=== PATIENT | male | born 1930 | race Caucasian/White ===

== ENCOUNTER 2016-09-03 15:28 | Inpatient (IN) | payer MEDICARE ==
[~2016-09-03] VITALS: Ht 180.3 cm; Wt 76.0 kg
--- NOTE | ~2016-09-03 | ECH ---
Transthoracic Echocardiography Report (TTE) Demographics Patient Name MARÍA ASCENCIO JR Date of Study 09/04/2016 Patient Number [id number] Visit Number [id number] Date of 1930 Room Number 532 Accession Number [id number] Gender Male Age 86 year(s) Referring Yessica Dominguez Tank Bottom Assembler Akua Clark [facility] Physician Physician Interpreting Ryan Zaragoza Bar Machine Operator Production Physician Supervising Ordering Physician Yessica Dominguez MD, MD/MLP Nurse Stress Pumper Gager Conclusions Contractility Score Summary Normal Left Ventricular contractility was noted. Summary Technically adequate exam. The estimated left ventricular ejection fraction is 60-65%. Mild biatrial enlargement. Mild tricuspid regurgitation by color Doppler. There is mild pulmonary hypertension. The pulmonary pressure (RVSP) is 42 mmHg. The ascending aorta appears mildly dilated. The maximum diameter measures 3.6 cm. Recommendation The patient will be given the results of this study by the physician who ordered the exam. Procedure Type of Study TTE procedure:Echo Complete SF. Procedure Date Date: 09/04/2016 Start: 02:31 PM Technical Quality: Adequate visualization Indications:Atrial fibrillation, Shortness of breath and Hypertension. Appropriate Use Criteria: 9 Height: 71 inches Weight: 166 pounds BSA: 1.95 m Rhythm: Atrial fibrillation HR: 103 bpm BP: 119/78 mmHg M-Mode/2D Measurements LV Diastolic Dimension: 5.22 cm LV Systolic Dimension: 3.35 cm LV Septum Diastolic: 0.83 cm LV PW Diastolic: 0.85 cm AO Root Dimension: 3.58 cm Cardiac Output: 5.64 l/min LA Dimension: 3.61 cm Cardiac Index: 2.89 l/min*m RV Diastolic Dimension: 3.96 cm LA volume index: 37 ml/m LVOT: 2.18 cm LVOT VTI: 14.68 cm RV Base: 3.6 cm LV Stroke volume: 54.77 ml RV Mid: 3 cm LV Stroke volume index: 28.09 ml/m TAPSE: 2.4 cm TDI-S': 14 cm/s Doppler Measurements AV Peak Velocity: 1 m/s MV Peak E-Wave: 0.94 m/s AV Peak Gradient: 4 mmHg AV Mean Gradient: 2.67 mmHg LVOT Peak Velocity: 0.8 m/s AV Area (Continuity):2.69 cm PV Peak Velocity: 0.81 m/s TR Velocity:3.05 m/s PV Peak Gradient: 2.63 mmHg TR Gradient:37.21 mmHg Estimated PASP: 42.21 mmHg Estimated RAP:5 mmHg Estimated RVSP: 42 mmHg E' Septal Velocity: 0.11 m/s E' Lateral Velocity: 0.15 m/s RA Area: 21.4 cm Findings Left Ventricle Normal left ventricle size and function. Diastolic function indeterminate due to patient's arrhythmia. Right Ventricle Normal right ventricle structure and function. Left Atrium The left atrium is mildly dilated by LA volume index measurement. Right Atrium The right atrium is mildly dilated. Mitral Valve Normal mitral valve structure and function. Mild mitral regurgitation by color Doppler. Aortic Valve The aortic valve is mildly sclerotic. Tricuspid Valve Normal tricuspid valve structure and function. Mild tricuspid regurgitation by color Doppler. There is mild pulmonary hypertension. The pulmonary pressure (RVSP) is 42 mmHg. Pulmonic Valve The pulmonic valve is not well visualized. Trivial pulmonic valve regurgitation by color Doppler. Pericardial Effusion No evidence of pericardial effusion. Miscellaneous The ascending aorta appears mildly dilated. The maximum diameter measures 3.6 cm. Pleural Effusion No evidence of pleural effusion. Contractility Score LV regional wall motion:(0-Non visualized 1-Normal 2-Hypokinesis 3-Akinesis 4-Dyskinesis 5-Aneurysm) Signature
[~2016-09-03 15:28] MED LIST: CELEXA DPS20 MG PO; COLACE-DPS100 MG PO; DUONEB DPS3 ML IH; HYDROCODONE 7.7.5 MG PO; KLOR-CON M2020 MEQ PO; LIPITOR DPS10 MG PO; MAALOX DPS30 ML PO; OMEPRAZOLE20 M1 PO; PROSCAR DPS5 MG PO; SOLU-MEDROL125 MG IV; SURFAK DPS240 MG PO; TYLENOL DPS325 MG PO; VANCOCIN-DPS1 GM IV; XARELTO15 MG PO
[2016-09-06] MEDS ORDERED: PROVENTIL HFA6.7 GM IH (16:03)
[2016-09-06] MEDS ORDERED: ELIQUIS2.5 MG PO (16:04)
[2016-09-06] MEDS ORDERED: VITAMIN D3400 UNIT PO (16:04)
[2016-09-06] MEDS ORDERED: LIPITOR DPS10 MG PO (16:04)
[2016-09-06] MEDS ORDERED: ADULT LOW DOSE81 MG PO (16:04)
[2016-09-06] MEDS ORDERED: DUONEB DPS3 ML IH (16:04)
[2016-09-06] MEDS ORDERED: COLACE-DPS100 MG PO (16:05)
[2016-09-06] MEDS ORDERED: EFUDEX40 GM TP (16:07)
[2016-09-06] MEDS ORDERED: ENULOSE10 GM/15 M PO (16:08)
[2016-09-06] MEDS ORDERED: NITROSTAT0.4 MG SL (16:08)
[2016-09-06] MEDS ORDERED: ASMANEX1 INH IH (16:08)
[2016-09-06] MEDS ORDERED: PRILOSEC DPS20 MG PO (16:08)
[2016-09-06] MEDS ORDERED: SPIRIVA18 MCG IH (16:09)
[2016-09-06] MEDS ORDERED: TERA PO (16:09)
[2016-09-06] MEDS ORDERED: MIRALAX DPS17 GM PO (16:09)
[2016-09-06] MEDS ORDERED: LASIX DPS40 MG PO (16:10)
[2016-09-06] MEDS ORDERED: DELTASONE DPS10 MG PO (16:10)
[2016-09-06] MEDS ORDERED: MICRO-K DPS10 MEQ PO (16:10)
[2016-09-06] MEDS ORDERED: LEVAQUIN DPS500 MG PO (16:11)
--- NOTE | 2016-09-15 12:04 | HP ---
ADMIT: 09/03/2016 RM/LOC: 532 [facility] MR#: [id number] [address] [address] [place] [address] History and Physical SEX: M AGE: 86 : 1930 CHIEF COMPLAINT: Increased shortness of breath and sputum production. 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 The patient was recently admitted to the hospital at [place] for pneumonia and COPD exacerbation. He was doing well and so he was discharged on 08/27/2016. The patient states he initially felt better, but then over the next couple of days, he became more short of breath and had increased sputum production with sometimes occasional pink-tinged sputum. The patient is currently on a prednisone taper and just recently stopped the antibiotics. When the patient continued to get short of breath, the patient brought himself to the [facility], who then decided to ship him back to [place]. Of note, patient does wear oxygen at night, anywhere between 2 to 4 L at a time. He also wears oxygen during the day quite frequently, but not consistently. The patient denies any chest pain, palpitations. Denies nausea, vomiting, abdominal pain. He does have some constipation. No weakness. He does have some edema bilaterally. REVIEW OF SYSTEMS: As noted in the HPI noted above. PAST MEDICAL HISTORY: Atrial fibrillation, hypertension, lymphocytic leukemia, COPD, benign prostatic hypertrophy. ALLERGIES: SULFA. MEDICATIONS: See list. PAST SURGICAL HISTORY: He had back surgery after returning from the war. FAMILY HISTORY: Noncontributory at this point in time. PHYSICAL EXAMINATION: VITAL SIGNS: The patient's temperature is 97.6, heart rate of 109, respiratory rate 22, blood pressure 123/71, 98% SpO2 on 2 L. GENERAL: Pleasant, alert and oriented x3. No acute distress. HEENT: Normocephalic and atraumatic. Moist mucous membranes. Extraocular muscles are intact. HEART: Irregularly regular with no murmur. LUNGS: Decreased bowel sounds, specifically on the right-side. He also had maybe some increased aeration or rhonchi on the right as well. ABDOMEN: Soft, nontender. EXTREMITIES: 2+ edema bilaterally. : Villanueva is in place at this time. LABORATORY AND IMAGING DATA: CT done in the ER showed a right lower lobe pneumonia. Blood cultures are pending. PT/INR is within normal range. Electrolytes were normal. The patient did have slightly elevated glucose at 104, otherwise normal. White blood cell 5.3, hemoglobin is 10.3, and platelets were 112. Lactic acid is 2.2, which is elevated. Procalcitonin was ADMIT: 09/03/2016 RM/LOC: 532 [facility] MR#: [id number] [address] [address] [place] [address] History and Physical SEX: M AGE: 86 : 1930 normal at less than 0.05. ASSESSMENT AND PLAN: The patient is an 86-year-old male with: 1. Hypertension. 2. Chronic obstructive pulmonary disease. 3. Atrial fibrillation. 4. Hyperlipidemia. 5. New onset leukemia. We admitted him for pneumonia and increased shortness of breath. Pneumonia is likely HCAP due to patient's recent hospitalization stay. Shortness of breath may also be due to chronic obstructive pulmonary disease. Other problems include patient's atrial fibrillation, hypertension, leukemia. Itzel Hameed MD Resident / Reno Juan MD / abe JOB #: [id number] CC: Reno Juan, Attending Physician [facility] Physician, Family Physician
--- NOTE | 2016-09-29 01:05 | ER ---
ADMIT: 09/03/2016 RM/LOC: 532 [facility] MR#: [id number] [address] [address] [place] [address] Emergency Room Report SEX: M AGE: 86 : 1930 DATE: 09/03/2016 CHIEF COMPLAINT: Sent from [facility] for possible pneumonia. HISTORY OF PRESENT ILLNESS: The patient is an 86-year-old gentleman with history of COPD and recent pneumonia with admission, who presents to the ER from the [facility] today. The patient had an admission what sounds like on August 23, which he was in [facility] for 4 days, getting IV antibiotics. He was discharged home on oral antibiotics. He was apparently doing well initially, but over the past couple of days, states he has had increased sputum production and slightly increased shortness of breath. He does not note any fevers or chills. He did go to the [facility] today for followup appointment and they evaluated him. They were concerned that he was deteriorating, so sent him to us for further evaluation. He has no pain complaints when I speak to him. He does not have any nausea or vomiting. No change in bowel or bladder function. He does have some pedal edema, which is gradually getting worse over several weeks, but has not changed in the last couple of days. REVIEW OF SYSTEMS: Ten-point review of systems is done and is negative except as in HPI. PAST MEDICAL HISTORY: Significant for coronary artery disease, COPD, BPH, lymphocytic leukemia, and atrial fibrillation. PAST SURGICAL HISTORY: He has a stent. MEDICATIONS: See nurse's note. He did take his last dose of oral Levaquin today. ALLERGIES: TO BACTRIM. SOCIAL HISTORY: The patient has a long history of smoking, but is not currently smoking. Denies drug or alcohol use. PHYSICAL EXAMINATION: See T-sheet for complete physical exam. CT chest shows what looks like infiltrate/pneumonia. LABORATORY DATA: White count of 5.3, hemoglobin 10.3, and platelets 113. Lactic is slightly elevated at 2.2. Troponin less than 0.015. Procalcitonin less than 0.05. Chemistries are normal. INR is 1.03. EKG showed atrial fibrillation with a rate of 117. I do not see any signs of acute CO. EMERGENCY DEPARTMENT COURSE: The patient was worked up for possible pneumonia ADMIT: 09/03/2016 RM/LOC: 532 [facility] MR#: [id number] [address] [address] MARÍA ASCENCIO [address] [place] [id number] Emergency Room Report SEX: M AGE: 86 : 1930 and we did actually get a CT of his chest, which shows he does have pneumonia. He was given IV Levaquin in the Emergency Department. We contacted the [facility] to see if we get admitted there and they were on diversion. I contacted Dr. Juan, who is on for [facility] and spoke with him about the patient. He will be admitting the patient to his Service and has contacted his resident to also see the patient. The patient was given a 500 mL bolus while in the ER and then had normal saline run at 200 mL/h. DIAGNOSES: 1. Pneumonia. 2. Atrial fibrillation. 3. Chronic obstructive pulmonary disease. Bhavik Montesinos MD/ modl JOB #: [id number] CC: Reno Juan MD, Attending Physician . [facility]
--- NOTE | 2016-10-07 09:03 | DS ---
ADMIT: 09/03/2016 RM/LOC: 532 [facility] MR#: [id number] [address] [address] [place] [address] General Discharge Summary SEX: M AGE: 86 : 1930 ADMISSION DATE: 09/03/2016 DISCHARGE DATE: 09/05/2016 CONSULTING PHYSICIAN: None. CONDITION ON DISCHARGE: Improved and stable. FINAL DIAGNOSES: 1. Hospital-acquired pneumonia or health careassociated pneumonia. 2. Urinary retention. 3. Hypertension. 4. Chronic obstructive pulmonary disease. 5. Atrial fibrillation. 6. Recent diagnosis of leukemia. PROCEDURES: None. 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 Of note, he was just in the [facility] and discharged on the 27 August 2016 for a pneumonia. He did just recently stop the prednisone taper and antibiotics, felt good for a few days and then started to get worse again. The patient went to the [facility] and they sent him to the [facility]. At home, he is on anyway between 2 and 4 L of oxygen at night, and sometimes wearing it during the day frequently, but not consistently. Patient was found to have a right lower lobe pneumonia on CT done in the ER. HOSPITAL COURSE: HCAP pneumonia. The patient was started on IV Levaquin initially and then was transitioned to p.o. Levaquin as he improved. Patient's oxygenation also improved. The patient had a Villanueva placed when he first arrived to the ER. Due to the patient's weakness and difficulty of moving at that time after removal of the catheter. The patient did have some urinary retention that got better with time. The patient was discharged out on p.o. Levaquin and a prednisone taper. We also managed his hypertension, COPD, atrial fibrillation based of his current regimen of medications. DISCHARGE MEDICATIONS: 1. Aspirin. 2. Colace. 3. Deltasone taper. 4. Eliquis 2.5 mg daily. 6. Potassium replacement. 7. Lipitor. ADMIT: 09/03/2016 RM/LOC: 532 [facility] MR#: [id number] [address] [address] [place] [address] General Discharge Summary SEX: M AGE: 86 : 1930 8. Protonix. 9. Vitamin D. 10.DuoNeb. 11.Spiriva. 12.Prednisone Taper 13.Lasix. 14.Levaquin, which was 500 mg daily for 10 days based of his kidney function. FOLLOW UP: Follow up appointments: PCP at the [facility] within the week. Diet is regular. CBC, BMP, and chest x-ray next at the outpatient visit. We okayed the patient to continue on his home oxygen at his normal dose status. Itzel Hameed MD Resident / Reno Juan MD / modl JOB #: [id number] CC: Reno Juan MD, Attending Physician [facility] Physician, Family Physician
== END 2016-09-05 16:11 | disposition home or self-care (01) | DRG 190 ==
LOC: ER 15:28 → 5MS 19:27
PROVIDERS: ADMIT Family Medicine
DX: J44.0 Chronic obstructive pulmonary disease with (acute) lower respiratory infection (principal); J18.9 Pneumonia, unspecified organism; I50.33 Acute on chronic diastolic (congestive) heart failure; D61.818 Other pancytopenia; Z99.81 Dependence on supplemental oxygen; C91.90 Lymphoid leukemia, unspecified not having achieved remission; I48.91 Unspecified atrial fibrillation; R33.9 Retention of urine, unspecified; J44.1 Chronic obstructive pulmonary disease with (acute) exacerbation; R09.02 Hypoxemia; E87.6 Hypokalemia; I10 Essential (primary) hypertension; I25.10 Atherosclerotic heart disease of native coronary artery without angina pectoris; N40.0 Benign prostatic hyperplasia without lower urinary tract symptoms; Z87.891 Personal history of nicotine dependence